=== PATIENT | male | born 1985 | race Caucasian/White ===

== ENCOUNTER 2024-12-17 17:26 | Observation (INO) ==
[2024-12-17] MEDS ORDERED: IOPAMIDOL 100 ML BOTTLE IV ONE (17:27)
[2024-12-17] MEDS: fentaNYL 100 MCG/2 ML VIAL IV ONE (17:52)
[2024-12-17] MEDS: 0.9 % SODIUM CHLORIDE 1,000 ML IV ONE (17:59)
[2024-12-17 18:10] LABS: Basophils # (Auto) 0.01 K/mcL (0.00-0.30); Basophils % (Auto) 0.2 % (0.0-2.0); Eosinophils # (Auto) 0.06 K/mcL (0.00-0.70); Eosinophils % (Auto) 1.3 % (0.0-7.0); Hematocrit 38.5 % (40.1-51.0); Hemoglobin 12.6 g/dL (13.7-17.5); Lymphocytes # (Auto) 0.62 K/mcL (1.50-4.80); Lymphocytes % (Auto) 13.8 % (15.5-49.0); Mean Corpuscular HGB Conc 32.7 g/dL (31.0-36.0); Monocytes # (Auto) 0.61 K/mcL (0.10-0.90); Monocytes % (Auto) 13.6 % (1.0-12.0); Neutrophils % (Auto) 71.1 % (38.0-78.0); Platelet Count 354 K/mcL (140-440); RBC 4.22 M/mcL (4.63-6.08); WBC 4.5 K/mcL (4.5-11.0)
[2024-12-17 18:19] LABS: ALT/SGPT 7 U/L (<40); AST/SGOT 16 U/L (<40); Albumin 3.8 gm/dL (3.2-5.2); Albumin/Globulin Ratio 1.4 (1.0-2.3); Alkaline Phosphatase 61 U/L (39-117); Anion Gap 11.0 (8.0-16.0); Bilirubin,Total 1.0 mg/dL (0.1-1.0); Blood Urea Nitrogen 18 mg/dL (6-20); Calcium 8.9 mg/dL (8.6-10.4); Carbon Dioxide 25 mmol/L (22-30); Chloride 102 mmol/L (96-108); Globulin 2.7 gm/dL (2.2-3.7); Glucose 101 mg/dL (70-105); Potassium 3.8 mmol/L (3.3-5.1); Sodium 138 mmol/L (133-145)
[2024-12-17] MEDS ORDERED: ONDANSETRON 4 MG/2 ML VIAL IV PRN (18:44)
[2024-12-17] MEDS: KETOROLAC 15 MG/ML VIAL IV ONE (19:30)
[2024-12-17 20:10] LABS: Bacteria,Urine 0 /hpf (0); Bilirubin,Urine NEGATIVE (Negative); Color,Urine LT. YELLOW; Glucose,Urine (UA) NEGATIVE (Negative); Ketones,Urine 40 mg/dL (Negative); Leukocyte Esterase,Urine NEGATIVE /uL (Negative); Mucus,Urine Few /hpf; PH,Urine 6.0 (5.0-9.0); Protein,Urine NEGATIVE (Negative); Specific Gravity,Urine 1.010 (1.000-1.035); Urobilinogen,Urine 0.2 mg/dL
[2024-12-17] MEDS: LACTATED RINGERS 1,000 ML IV SCH (20:17)
[2024-12-17] MEDS: ACETAMINOPHEN 1,000 MG/100 ML BAG IV PRN (22:03)
[2024-12-18 06:28] LABS: Basophils # (Auto) 0.02 K/mcL (0.00-0.30); Basophils % (Auto) 0.6 % (0.0-2.0); Eosinophils # (Auto) 0.11 K/mcL (0.00-0.70); Eosinophils % (Auto) 3.5 % (0.0-7.0); Hematocrit 36.4 % (40.1-51.0); Hemoglobin 11.8 g/dL (13.7-17.5); Lymphocytes # (Auto) 0.79 K/mcL (1.50-4.80); Lymphocytes % (Auto) 25.5 % (15.5-49.0); Mean Corpuscular HGB Conc 32.4 g/dL (31.0-36.0); Monocytes # (Auto) 0.59 K/mcL (0.10-0.90); Monocytes % (Auto) 19.0 % (1.0-12.0); Neutrophils % (Auto) 51.4 % (38.0-78.0); Platelet Count 310 K/mcL (140-440); RBC 3.97 M/mcL (4.63-6.08); WBC 3.1 K/mcL (4.5-11.0)
[2024-12-18 06:37] LABS: ALT/SGPT 6 U/L (<40); AST/SGOT 14 U/L (<40); Albumin 3.4 gm/dL (3.2-5.2); Albumin/Globulin Ratio 1.5 (1.0-2.3); Alkaline Phosphatase 54 U/L (39-117); Anion Gap 8.0 (8.0-16.0); Bilirubin,Total 1.1 mg/dL (0.1-1.0); Blood Urea Nitrogen 18 mg/dL (6-20); Calcium 8.7 mg/dL (8.6-10.4); Carbon Dioxide 25 mmol/L (22-30); Chloride 105 mmol/L (96-108); Globulin 2.3 gm/dL (2.2-3.7); Glucose 80 mg/dL (70-105); Potassium 4.1 mmol/L (3.3-5.1); Sodium 138 mmol/L (133-145)
[2024-12-18] MEDS ORDERED: ALBUTEROL SULFATE 2.5 MG/3 ML NEBULIZER NEB PRN (08:22)
[2024-12-18] MEDS ORDERED: ONDANSETRON 4 MG/2 ML VIAL IV PRN (08:22)
[2024-12-18] MEDS: FAMOTIDINE/PF 20 MG/2 ML VIAL IV SCH (08:53)
[2024-12-18] MEDS: DOCUSATE SODIUM 100 MG CAPSULE PO SCH (08:53)
[2024-12-18] MEDS: ENOXAPARIN 40 MG/0.4 ML SYRINGE SQ SCH (08:53)
[2024-12-18] MEDS: 0.9 % SODIUM CHLORIDE 1,000 ML IV SCH (10:03)
[2024-12-18] MEDS: 0.9 % SODIUM CHLORIDE 10 ML SYRINGE IV SCH (13:50)
[2024-12-18 18:20] LABS: C-Reactive Protein 4.03 mg/dL (0.03-0.80)
[2024-12-18 19:56] LABS: Phosphorous 3.0 mg/dL (2.5-4.5)
[2024-12-18] MEDS: SENNOSIDES 1 TABLET PO SCH (20:39)
[2024-12-19 06:03] LABS: Basophils # (Auto) 0.02 K/mcL (0.00-0.30); Basophils % (Auto) 0.6 % (0.0-2.0); Eosinophils # (Auto) 0.11 K/mcL (0.00-0.70); Eosinophils % (Auto) 3.2 % (0.0-7.0); Hematocrit 35.8 % (40.1-51.0); Hemoglobin 11.8 g/dL (13.7-17.5); Lymphocytes # (Auto) 0.81 K/mcL (1.50-4.80); Lymphocytes % (Auto) 23.5 % (15.5-49.0); Mean Corpuscular HGB Conc 33.0 g/dL (31.0-36.0); Monocytes # (Auto) 0.48 K/mcL (0.10-0.90); Monocytes % (Auto) 13.9 % (1.0-12.0); Neutrophils % (Auto) 58.8 % (38.0-78.0); Platelet Count 330 K/mcL (140-440); RBC 3.93 M/mcL (4.63-6.08); WBC 3.5 K/mcL (4.5-11.0)
[2024-12-19 06:30] LABS: C-Reactive Protein 3.33 mg/dL (0.03-0.80)
[2024-12-19 06:31] LABS: Phosphorous 2.9 mg/dL (2.5-4.5)
[2024-12-19 06:33] LABS: ALT/SGPT < 5 U/L (<40); AST/SGOT 16 U/L (<40); Albumin 3.7 gm/dL (3.2-5.2); Albumin/Globulin Ratio 1.5 (1.0-2.3); Alkaline Phosphatase 66 U/L (39-117); Anion Gap 9.0 (8.0-16.0); Bilirubin,Total 1.0 mg/dL (0.1-1.0); Blood Urea Nitrogen 14 mg/dL (6-20); Calcium 8.6 mg/dL (8.6-10.4); Carbon Dioxide 24 mmol/L (22-30); Chloride 107 mmol/L (96-108); Globulin 2.4 gm/dL (2.2-3.7); Glucose 87 mg/dL (70-105); Potassium 4.2 mmol/L (3.3-5.1); Sodium 140 mmol/L (133-145)
[2024-12-19] MEDS: KETOROLAC 30 MG/ML VIAL IV PRN (08:24)
== END 2024-12-20 09:10 | disposition home or self-care (01) ==
LOC: MEDSUR 17:26 → ED 17:26 → MEDSUR 20:05
PROVIDERS: ADMIT Surgery; ATTEND Surgery